=== PATIENT | female | born 1965 | race Two or more races ===

== ENCOUNTER 2024-02-17 16:06 | Emergency (ER) | payer OTHER ==
[~2024-02-17] VITALS: Ht 165.1 cm; Wt 68.0 kg
== END 2024-02-17 19:13 | disposition home or self-care (01) ==
LOC: ER 16:08
DX: S09.8XXA Other specified injuries of head, initial encounter (principal); X58.XXXA Exposure to other specified factors, initial encounter; Y93.89 Activity, other specified; Y92.481 Parking lot as the place of occurrence of the external cause; Y99.8 Other external cause status